=== PATIENT | male | born 1965 | race Asian ===

== ENCOUNTER 2017-02-28 17:06 | Emergency (ER) | payer SELFPAY ==
[~2017-02-28] VITALS: Ht 177.8 cm; Wt 72.6 kg
[2017-02-28 17:14] VITALS: BP 188/129
[2017-02-28] MEDS ORDERED: Labetalol 5mg/ml 20ml vial IV ONE (17:15)
[2017-02-28 17:27] LABS: BASOPHILS % (AUTO) 0.8 % (0.0-2.0); EOSINOPHILS % (AUTO) 0.4 % (0.0-3.0); LYMPHOCYTES % (AUTO) 18.8 % (20.0-45.0); MEAN CORPUSCULAR HEMOGLOBIN 31.2 PG (27.0-31.0); MEAN CORPUSCULAR HGB CONC 34.1 G/DL (32.0-36.0); MEAN CORPUSCULAR VOLUME 92 FL (80-99); MEAN PLATELET VOLUME 6.6 FL (6.5-10.1); MONOCYTES % (AUTO) 5.5 % (1.0-10.0); NEUTROPHILS % (AUTO) 74.5 % (45.0-75.0); PLATELET COUNT 162 K/UL (150-450); RED BLOOD COUNT 3.96 M/UL (4.70-6.10); RED CELL DISTRIBUTION WIDTH 11.8 % (11.6-14.8); WHITE BLOOD COUNT 7.5 K/UL (4.8-10.8)
[2017-02-28 17:53] LABS: TROPONIN I < 0.30 ng/mL (<=0.30)
[2017-02-28 17:56] LABS: ALANINE AMINOTRANSFERASE 25 U/L (3-41); ALBUMIN/GLOBULIN RATIO 1.9 (1.0-2.7); ANION GAP 22 (5-15); ASPARTATE AMINO TRANSFERASE 24 U/L (5-40); CALCIUM 9.5 mg/dL (8.6-10.2); CARBON DIOXIDE 22 mEQ/L (20-30); CHLORIDE 96 mEQ/L (98-107); GLOMERULAR FILTRATION RATE > 60 mL/min (>60); HEMOLYSIS 10; POTASSIUM 3.4 mEQ/L (3.4-4.9); SODIUM 140 mEQ/L (135-145); TOTAL PROTEIN 7.4 g/dL (6.6-8.7)
[2017-02-28 18:12] LABS: BILIRUBIN,DIRECT 0.3 mg/dL (0.1-0.3)
[2017-02-28 18:33] VITALS: BP 163/108
[2017-02-28 20:01] VITALS: BP 183/114
[2017-02-28] MEDS ORDERED: NORVASC5 MG ORAL (20:31)
[2017-02-28] MEDS ORDERED: CATAPRES0.1 MG ORAL (20:32)
[2017-02-28] MEDS ORDERED: LORazepam Inj 2mg/ml 1ml IV ONE (21:00)
[2017-02-28 21:35] VITALS: BP 155/98
--- NOTE | 2017-03-03 20:36 | Emergency Room Report ---
History of Present Illness General Chief Complaint: Hypertension Source: Patient, EMS Present Illness HPI Patient is a 51-year-old male who presented after increased palpitations. Patient gradual onset of symptoms. Patient reported having a pounding heartbeat which was related to his blood pressure being high. Patient had prior history of high blood pressure. This had a long-standing. Patient does not currently take any medications although he has been prescribed in the past. Patient had no complaints of chest pain. He denied any shortness of breath. Patient denied any blurred vision or headache. He denied any fever. Allergies: Coded Allergies: No Known Allergies (Unverified , 02/28/17) Patient History Past Medical History: see triage record, HTN Reviewed Nursing Documentation: PMH: Agreed, PSxH: Agreed Nursing Documentation-PMH Past Medical History: No History, Except For Hx Hypertension: Yes Review of Systems All Other Systems: negative except mentioned in HPI Physical Exam Vital Signs Date Time Temp Pulse Resp B/P Pulse Ox O2 Delivery O2 Flow Rate FiO2 02/28/17 17:03 98 15 222/132 98 Room Air 02/28/17 18:33 98.2 Sp02 EP Interpretation: reviewed, normal General Appearance: normal inspection, well appearing, no apparent distress, alert, GCS 15 Head: atraumatic ENT: normal ENT inspection, hearing grossly normal, normal voice Neck: normal inspection, full range of motion, supple, no bony tend Respiratory: normal inspection, lungs clear, normal breath sounds, no respiratory distress, no retraction, no wheezing Cardiovascular #1: regular rate, rhythm, no edema Gastrointestinal: normal inspection, normal bowel sounds, non tender, soft, no guarding, no hernia Genitourinary: no CVA tenderness Musculoskeletal: normal inspection, back normal, normal range of motion Neurologic: normal inspection, alert, oriented x3, responsive, mat sewer III-XII nml as tested, speech normal Psychiatric: normal inspection, judgement/insight normal, mood/affect normal Skin: normal inspection, normal color, no rash Medical Decision Making Diagnostic Impression: Primary Impression: Hypertension ER Course Patient presented for uncontrolled hypertension. Differential diagnosis included was not limited to hypertensive crisis, alcohol withdrawal, and adrenal tumor, renal disease, among others. Because of complexity of patient's case laboratory testing and imaging studies were ordered.Laboratory studies were unremarkable. Troponin was noted be negative. Patient was given medications for blood pressure. He had initial improvement. The patient stated he felt better and wanted to go home despite his blood pressure being somewhat elevated. The patient was noted to have no acute neurologic deficits. Patient is advised followup with his primary care physician for further evaluation. He was given prescriptions for antihypertensive medications. Labs Test 02/28/17 17:13 White Blood Count 7.5 K/UL (4.8-10.8) Red Blood Count 3.96 M/UL (4.70-6.10) Hemoglobin 12.4 G/DL (14.2-18.0) Hematocrit 36.3 % (42.0-52.0) Mean Corpuscular Volume 92 FL (80-99) Mean Corpuscular Hemoglobin 31.2 PG (27.0-31.0) Mean Corpuscular Hemoglobin Concent 34.1 G/DL (32.0-36.0) Red Cell Distribution Width 11.8 % (11.6-14.8) Platelet Count 162 K/UL (150-450) Mean Platelet Volume 6.6 FL (6.5-10.1) Neutrophils (%) (Auto) 74.5 % (45.0-75.0) Lymphocytes (%) (Auto) 18.8 % (20.0-45.0) Monocytes (%) (Auto) 5.5 % (1.0-10.0) Eosinophils (%) (Auto) 0.4 % (0.0-3.0) Basophils (%) (Auto) 0.8 % (0.0-2.0) Sodium Level 140 mEQ/L (135-145) Potassium Level 3.4 mEQ/L (3.4-4.9) Chloride Level 96 mEQ/L (98-107) Carbon Dioxide Level 22 mEQ/L (20-30) Anion Gap 22 (5-15) Blood Urea Nitrogen 13 mg/dL (7-23) Creatinine 1.0 mg/dL (0.7-1.2) Estimat Glomerular Filtration Rate > 60 mL/min (>60) Glucose Level 107 mg/dL (74-106) Calcium Level 9.5 mg/dL (8.6-10.2) Total Bilirubin 1.3 mg/dL (0.0-1.2) Direct Bilirubin 0.3 mg/dL (0.1-0.3) Aspartate Amino Transf (AST/SGOT) 24 U/L (5-40) Alanine Aminotransferase (ALT/SGPT) 25 U/L (3-41) Alkaline Phosphatase 83 U/L (40-129) Troponin I < 0.30 ng/mL (<=0.30) Total Protein 7.4 g/dL (6.6-8.7) Albumin 4.9 g/dL (3.5-5.2) Globulin 2.5 g/dL Albumin/Globulin Ratio 1.9 (1.0-2.7) Last Vital Signs Date Time Temp Pulse Resp B/P Pulse Ox O2 Delivery O2 Flow Rate FiO2 02/28/17 21:35 98.2 80 25 155/98 98 Room Air Status: improved Disposition: HOME, SELF-CARE Condition: Stable Scripts Clonidine Hcl* (CATAPRES*) 0.1 Mg Tablet 0.1 MG ORAL EVERY 8 HOURS, #10 TAB Prov: Jarad Lara 02/28/17 Amlodipine Besylate (Norvasc) 5 Mg Tablet 5 MG ORAL DAILY, #30 TAB Prov: Jarad Lara 02/28/17 Patient Instructions: Hypertension Jarad Lara Mar 03, 2017 20:36
== END 2017-02-28 21:35 | disposition home or self-care (01) ==
LOC: EDBD 17:06 → EMR 18:30
DX: I10 Essential (primary) hypertension (principal)
CPT/HCPCS: 36415; 80053; 82248; 84484; 85025; 96374; 96375